=== PATIENT | female | born 1980 | race Caucasian/White ===

== ENCOUNTER 2022-03-12 20:37 | Emergency (ER) | payer BC ==
[2022-03-12] MEDS ORDERED: Ketorolac Tromethamine 30 MG/ML VIAL ONE (22:45)
[2022-03-13 16:11] LABS: SARS-CoV-2 PCR by NAA Not Detected (NotDetected)
== END 2022-03-13 00:13 | disposition home or self-care (01) ==
LOC: ERS 20:37
DX: R51.9 Headache, unspecified (principal); J06.9 Acute upper respiratory infection, unspecified; Z20.822 Contact with and (suspected) exposure to COVID-19
CPT/HCPCS: 87804; 96372; 99284; J1885; U0003; U0005